=== PATIENT | male | born 1965 | race Caucasian/White ===

== ENCOUNTER 2018-11-18 09:27 | Inpatient (IN) ==
[2018-11-18 10:12] LABS: BASO# 0.02 X1000 (0.0-0.2); BASO% 0.3 % (0.0-0.8); EOS# 0.44 X1000 (0.0-0.7); EOS% 7.5 % (0.0-10.0); HEMATOCRIT 45.3 % (42.0-52.0); HEMOGLOBIN 15.6 g/dL (14.0-18.0); LYMPH# 1.75 X1000 (1.2-3.4); LYMPH% 29.8 % (20.5-51.1); MCH 29.9 PG (27-31); MCHC 34.4 g/dL (33-37); MCV 86.9 FL (81-99); MONO% 6.8 % (1.7-9.3); MPV 10.5 FL (7.4-10.4); NEUT# 3.27 X1000 (1.4-6.5); NEUT% 55.6 % (42.2-75.2); PLT 231 X1000 (130-400); RBC 5.21 XMIL (4.7-6.1); RDW 13.3 % (11.5-14.5); WBC 5.88 X1000 (4.8-10.8)
--- NOTE | 2018-11-18 10:14 | Diag Imaging Result Doc PS360 ---
CHEST-2 VIEWS - 11/18/2018 INDICATION: new atrial flutter COMPARISON: None FINDINGS: The lungs are normally expanded and clear. Heart size and mediastinal contours are normal. No pneumothorax or pleural effusion. IMPRESSION: Negative exam. Electronically signed by Cornell Butcher 11/18/2018 10:11 AM
[2018-11-18 11:10] LABS: ALB/GLOB RATIO 1.8; ALBUMIN 4.3 g/dL (3.5-5.0); CALCIUM 9.2 mg/dL (8.8-10.2); CREATININE 1.3 mg/dL (0.7-1.2); POTASSIUM 4.5 mmol/L (3.5-5.1); TOTAL BILIRUBIN 0.62 mg/dL (0.20-1.00); TOTAL PROTEIN 6.7 g/dL (6.3-8.3)
--- NOTE | 2018-11-18 12:12 | PROVIDER DOCUMENTATION ---
This chart was entered by Nuria Sanchez Scribe, acting as scribe for Nikita Norman DO. HPI-Cardiac General - General Chief Complaint: Palpitations Stated Complaint: CP-HX OF HEART PROB Time Seen by Provider: 11/18/18 09:49 Source: patient, family () - History of Present Illness-Cardiac Nature of Presenting Problem: 53 yowm presents to the ed with his woife. pt sts for 2 days he has had intermittent dizziness, fatigue and low stamina. pt is a fit man and denies chest pain. pt sts was on the treadmill this morning and became sob, dizziness and fatigue became worse and did not relieved as previous times. pt once in ed all sx did resolve and on exam pt is back to baseline Quality of Pain: reports: none Severity in ED: moderate Onset/Duration: 2 days ago (but worsened this am) Timing: gone now Context/Activities at Onset: reports: moderate activity Modifying Factors: improves with: rest. worse with: exercise Palpitation Quality: other (atrial flutter) Recent use of:: reports: no stimulants Nitro Today/Relief: reports: no nitro taken today Aspirin Treatment Today: reports: 81 mg x 1, provided at home Prior Chest Pain/Cardiac Workup: reports: echocardiography (2 years prior) Associated Symptoms: reports: dizziness, fatigue, shortness of breath. denies: abdominal pain, back pain, diaphoresis, fever/chills, headache, heartburn, nausea, syncope, vomiting Similar Symptoms Previously?: Yes Recently Seen Here or By Another Healthcare Provider: No Review of Systems - Adult - REVIEW OF SYSTEMS - ADULT Constitutional: reports: see HPI, fatique. denies: chills, fever Eyes: reports: no symptoms reported Ears, Nose, Mouth & Throat: reports: no symptoms reported Cardiovascular: reports: see HPI, palpitations. denies: chest pain, syncope Respiratory: reports: see HPI, shortness of breath. denies: cough, pleurisy, wheezing Gastrointestinal: denies: abdominal pain, diarrhea, nausea, vomiting Genitourinary: reports: no symptoms reported Musculoskeletal: denies: back pain, neck pain Integumentary: reports: no symptoms reported Neurological: reports: no symptoms reported Psychiatric: reports: no symptoms reported Endocrine: reports: no symptoms reported Hematologic/Lymphatic: reports: no symptoms reported Allergic/Immunologic: reports: no symptoms reported All Other Systems: Reviewed and Negative Past History - Adult - PAST MEDICAL HISTORY-ADULT Review of Records: reports: Nursing Assessment Review, Medications Reviewed Major Childhood Illnesses: reports: denies history Cardiovascular: reports: hyperlipidemia Respiratory: reports: denies history Gastrointestinal: reports: denies history Genitourinary: reports: denies history Musculoskeletal: reports: denies history Hand Dominance: Right Handed Neurological: reports: denies history Psychiatric: reports: denies history Endocrine/Immune: reports: thyroid disorder Other Conditions: reports: denies history - PRIOR SURGERIES/PROCEDURES Surgical/Procedure History: reports: reviewed, not pertinent - IMMUNIZATION STATUS Childhood Immunizations: See Nurse Assessment Flu Vaccine: See Nurse Assessment - FAMILY HISTORY Family History: HTN (father), other (father [place] at 39) - SOCIAL HISTORY Smoking: denies Substance Use: denies Living Situation: family Physical Exam-General - PHYSICAL EXAM-ADULT Initial Vital Signs Reviewed: Yes - CONSTITUTIONAL General Appearance: appears well, alert, no apparent distress (pt is back to baseline) - EYES Eyes: PERRL/EOMI, pink conjunctivae - HEAD, EARS, NOSE, MOUTH & THROAT HENMT: normocephalic/atraumatic, moist mucous membranes, normal ENT inspection - NECK Neck: non-tender, full range of motion, supple, normal inspection - RESPIRATORY Respiratory: chest non-tender, lungs clear, normal breath sounds - CARDIOVASCULAR Cardiovascular: normal peripheral pulses, regular rate, rhythm - GASTROINTESTINAL (ABDOMEN) Abdominal Exam: normal bowel sounds, non tender, soft, no organomegaly, no pulsatile mass - LYMPHATIC Lymphatic: no adenopathy - MUSCULOSKELETAL Back Exam: normal inspection, no CVA tenderness, no vertebral tenderness Extremity: normal range of motion, non-tender, normal gait, normal inspection, no pedal edema, no calf tenderness, normal capillary refill, pelvis stable - SKIN Integumentary: normal color, normal turgor, warm/dry - NEUROLOGIC Neurologic: grossly normal, no motor/sensory deficits - PSYCHIATRIC Psych/Mental Status: normal mood/affect, normal thought content, normal thought process, oriented x 3 - HEART Score HEART Score: History: Slightly Suspicious HEART Score: ECG: Normal HEART Score: Age: 45-65 Years HEART Score: Risk Factors for Atherosclerotic Disease: No Risk Factors Known HEART Score: Troponin: < or = Normal Limit Total HEART Score:: 1 Progress - PLAN OF CARE/RESULTS Progress/Plan/Lab Results: Vital Signs - 8 hr 11/18/18 09:30 11/18/18 09:44 11/18/18 09:50 Temperature 97.4 F L Pulse Rate 76 75 75 Respiratory Rate 16 9 L 13 Blood Pressure 189/103 O2 Sat by Pulse Oximetry 98 99 99 11/18/18 10:00 11/18/18 10:15 11/18/18 10:20 Temperature Pulse Rate 75 75 74 Respiratory Rate 9 L 15 20 Blood Pressure O2 Sat by Pulse Oximetry 96 98 97 11/18/18 10:30 11/18/18 10:40 11/18/18 10:51 Temperature Pulse Rate 76 84 94 H Respiratory Rate 22 17 13 Blood Pressure O2 Sat by Pulse Oximetry 100 97 93 L 11/18/18 10:52 11/18/18 11:00 11/18/18 11:02 Temperature Pulse Rate 78 87 91 H Respiratory Rate 13 18 12 Blood Pressure 142/95 124/86 O2 Sat by Pulse Oximetry 99 98 100 Laboratory Results - last 24 hr 11/18/18 11/18/18 11/18/18 09:45 09:45 09:45 WBC 5.88 RBC 5.21 Hgb 15.6 Hct 45.3 MCV 86.9 MCH 29.9 MCHC 34.4 RDW Std Deviation 13.3 Plt Count 231 MPV 10.5 H Immature Gran % (Auto) 0.0 Neut % (Auto) 55.6 Lymph % (Auto) 29.8 Ralls % (Auto) 6.8 Eos % (Auto) 7.5 Baso % (Auto) 0.3 Immature Gran # (Auto) 0.00 Neut # (Auto) 3.27 Lymph # (Auto) 1.75 Ralls # (Auto) 0.40 Eos # (Auto) 0.44 Baso # (Auto) 0.02 Sodium 143 Potassium 4.5 Chloride 106 Carbon Dioxide 28 Anion Gap 9 BUN 10 Creatinine 1.3 H Estimated GFR/1.73 m2 58 BUN/Creatinine Ratio 8 Glucose 99 Calculated Osmolality 284 Calcium 9.2 Total Bilirubin 0.62 AST 19 ALT 20 Alkaline Phosphatase 89 Creatine Kinase 123 Troponin T < 0.010 Total Protein 6.7 Albumin 4.3 Globulin 2.4 Albumin/Globulin Ratio 1.8 Orders Category Date Time Status CHEST-2 VIEWS [RAD] Stat Exams 11/18/18 09:59 Completed CBC WITH ELECTRONIC DIFF [HEME] Stat Lab 11/18/18 09:45 Completed CK PROFILE [SP CHEM] Stat Lab 11/18/18 09:45 Completed COMPREHENSIVE METABOLIC PANEL [CHEM] Stat Lab 11/18/18 09:45 Completed T4 Stat Lab 11/18/18 09:45 Received TROPONIN T Stat Lab 11/18/18 09:45 Completed Thyroid Stimulating Hormone [TSH] Stat Lab 11/18/18 09:45 Received EKG [EKG] Stat Ther 11/18/18 09:32 Ordered Result Diagrams: 11/18/18 09:45 11/18/18 09:45 - REASSESSMENT Reassessment #1 Time Reassessed: 10:28 Status: unchanged Reassessment #2 Time Reassessed: 12:07 Status: unchanged - EKG 1 Time of EKG reading by physician:: 09:34 EKG Read and Signed by:: Nikita Norman EKG Interpretation (*Must complete 3 of following elements*): Abnormal Rate: 75 Rhythm: atrial flutter with variable av block [place]: normal QRS: normal NV Interval: normal ST Wave: normal Prior EKG Comparison: no prior EKG - XRAY 1 XRAY: Bilateral XRAY Study: Chest Impression: See EMR Report (CHEST-2 VIEWS - 11/18/2018 INDICATION: new atrial flutter COMPARISON: None FINDINGS: The lungs are normally expanded and clear. Heart size and mediastinal contours are normal. No pneumothorax or pleural effusion. IMPRESSION: Negative exam. Electronically signed by Cornell Butcher 11/18/2018 10:11 AM 11/18/18 1011 Interpreting Physician: Cornell Butcher MD Dictated Date/Time: 11/18/18 1011 cc: Nikita Norman DO; None,PCP) - CONSULTS/PCP/HOSPITALIST Notification #1 *Consult/PCP/Hospitalist*: cardio dr horn Time Discussed: 12:01 Reason/Comments: will consult with hospitalist #2 Consult: hospitalist dr will will admit Time Discussed: 12:08 Reason/Comments: spoke with dr barker Consult Disposition: Admit Departure - Departure Date of Disposition Decision: 11/18/18 Time of Disposition Decision: 12:11 DIAGNOSIS: Atrial flutter, paroxysmal Disposition: ADMITTED INPATIENT 09 Certified Medical Emergency: Emergent Condition: Fair Referrals and Follow-Ups: None,PCP [Primary Care Provider] - - Critical Care Note This patient required my direct & personal management of CC.: No Attestation - Physician/ SLADE Attestation Patient care was provided by Advanced Practice Provider:: No The physician spent face to face time with patient:: Yes Advanced Practice Provider documentation review:: Supervising physician onsite and consulted in the evaluation and care of this patient. The physician did have a face to face encounter with the patient. This chart was documented by the indicated scribe, (Nuria Sanchez Scribe) and accurately reflects the services I performed and decisions made by me, Nikita Norman DO, as attested by the provider's signature.
[2018-11-18 12:28] LABS: T4 6.81 ug/dL (4.60-12.00)
[2018-11-18 12:29] LABS: TSH 5.76 uIUmL (0.27-4.20)
[2018-11-18] MEDS ORDERED: NS 1,000 ML IV ONE (12:34)
[2018-11-18] MEDS ORDERED: MULTAQ PO ONE (13:16)
[2018-11-18 13:17] LABS: URINE SOURCE CLEAN CATCH
[2018-11-18 13:25] LABS: BILIRUBIN URINE NEGATIVE (NEGATIVE); BLOOD URINE NEGATIVE (NEGATIVE); COLOR STRAW; GLUCOSE URINE NEGATIVE (NEGATIVE); KETONE URINE NEGATIVE (NEGATIVE); LEUKOCYTES URINE NEGATIVE (NEGATIVE); NITRITE URINE NEGATIVE (NEGATIVE); PH URINE 7.5; PROTEIN URINE NEGATIVE (NEGATIVE); TURBIDITY URINE CLEAR (CLEAR); UROBILINOGEN URINE NORMAL (NORMAL)
[2018-11-18 13:26] LABS: UR EPITHELIAL CELLS <10 /HPF (<10); URINE BACTERIA NEGATIVE /HPF; URINE RBC <10 /HPF (<10); URINE WBC <10 /HPF (<10)
[2018-11-18 13:31] LABS: HEMOGLOBIN A1C 5.4 % (4.8-6.0)
--- NOTE | 2018-11-18 13:44 | CARDIOLOGY CONSULTATION ---
DATE: 11/18/2018 CHIEF COMPLAINT: Shortness of breath. HISTORY OF PRESENT ILLNESS: Mr. Garcia is a 53-year-old male with a history of Hodgkin's lymphoma previously. He was in his usual state of health running on the treadmill this morning when he began feeling more fatigued, short of breath, lightheaded. He presented to the ER for further evaluation and was found to be in atrial flutter. He since has converted. He has a resting heart rate in the 40s to 50s that he says is chronic and stable for him. He has no complaints presently of shortness of breath or chest pain. PAST MEDICAL HISTORY: 1. Significant for a Hodgkin's lymphoma. 2. Hypothyroidism. SOCIAL HISTORY: Does not smoke. He is . Family is present in the room with him today. REVIEW OF SYSTEMS: A 10-system review of systems is negative except for those mentioned in history of present illness. PHYSICAL EXAMINATION: Vitals: Patient is afebrile. His heart rate currently is in the 40s. On presentation he was in the 70s to 80s. His blood pressure is 124/86. General: He is in no acute distress. HEENT: Oropharynx is moist. Normal dentition. Eye examination shows pink conjunctivae. White sclerae. Neck: Examination shows no obvious thyromegaly or thyroid tenderness. Cardiovascular: He sounds to be in a bradycardic rhythm that is regular. He has no murmurs. He has no S3. He has no lower extremity edema. Chest: Sounds clear bilaterally. He has no increased work of breathing. Abdomen: Soft, nontender, nondistended. He has no obvious organomegaly. Skin: Warm and dry throughout without any rashes. Neurological: He is moving all extremities well. He has no lateralizing deficits. PERTINENT DATA: His EKG shows atrial flutter with variable conduction at a rate of 75 beats per minute when he presented. His chest x-ray is negative for any acute abnormalities. His white count is 5.8, hematocrit 45, platelet count 231,000. Sodium 143, potassium 4.5, BUN 10, creatinine is 1.3. Cardiac enzymes are negative. TSH is slightly elevated at 5.76. His free T4 is normal at 6.81. ASSESSMENT: Mr. Garcia is a 53-year-old male with loan atrial flutter. PLAN: I will place him on Multaq 400 b.i.d. He can continue on his aspirin. I will have him arrange for an outpatient echo through our office and we will get him referred over to the EP service for consideration for atrial flutter ablation. From my standpoint, he can be discharged home. I will give him a prescription for Multaq at 400 b.i.d. with a now dose to be given and again, he can follow up with me in the office as an outpatient. cc: Justen Chow MD
--- NOTE | 2018-11-18 14:06 | HISTORY AND PHYSICAL ---
CHIEF COMPLAINT: Palpitations. HISTORY OF PRESENT ILLNESS: Mr. Garcia is a 53-year-old male with a history of non- Hodgkin's lymphoma and prostate cancer, status post prostatectomy, who presents with palpitations after running on his treadmill today. Mr. Garcia is a very healthy individual. He does extensive cardiovascular exercise 4 to 5 times a week. He was on his treadmill today when he started noticing palpitations, dizziness, diaphoresis, tunnel vision and anxiety. He slowed his speed on the treadmill which did not improve symptoms, so he stopped and spoke to his , and they decided to come to the ER for evaluation. In the ER, he had an EKG done which showed atrial flutter with a variable block; however, rate was fairly low in the 70s and 80s. He denies any overt chest pain today but does state that over the past few days, he has noticed some discomfort in his chest. He has not had any nausea or vomiting, no diaphoresis and no dyspnea. He denies any lower extremity edema or orthopnea. His chest x-ray is unremarkable, and his laboratory data does not show anything acute as well. He does have a creatinine of 1.3. PAST MEDICAL HISTORY: 1. Non-Hodgkin's lymphoma. 2. Hypothyroidism. 3. History of prostate cancer, status post prostatectomy. 4. Hyperlipidemia. PAST SURGICAL HISTORY: He has had a prostatectomy and a neck mass excision and tonsillectomy. SOCIAL HISTORY: He denies tobacco, alcohol or drug use. He works as a defense contractor. FAMILY HISTORY: His father has a significant medical history of coronary artery disease at a young age, first [place] at 39 years old and now secondary to congestive heart failure. No other significant family history that he knows of. REVIEW OF SYSTEMS: A 14-point review of systems was obtained and found to be negative with the exception of the HPI. ALLERGIES: Iodine and iodide containing products as well as penicillin. HOME MEDICATIONS: Synthroid 50 mcg daily, Lipitor 40 mg daily, aspirin 81 mg daily. PHYSICAL EXAMINATION: VITAL SIGNS: Blood pressure is 124/86, heart rate is 91, respiratory rate 12, O2 saturation is 100% on room air. Temperature is 97.4. GENERAL: This is a well-developed, well-nourished 53-year-old male lying in hospital bed in no acute distress. NEUROLOGICAL: Awake, alert and oriented. Follows commands. No focal deficits. HEENT: Head is atraumatic and normocephalic. His pupils are equal, round and reactive to light. Oral mucosa is moist. NECK: Trachea is midline. There is no JVD. CHEST: Clear to auscultation. CARDIOVASCULAR: Bradycardic but regular. S1 and S2 are noted. No appreciable murmurs. GASTROINTESTINAL: Soft, nondistended and nontender. Bowel sounds positive. EXTREMITIES: No edema. Pulses 2+ bilaterally. DIAGNOSTIC DATA: Chest x-ray is negative. EKG with atrial flutter, variable block. Laboratory data reviewed, and only abnormality is a creatinine of 1.3 and a TSH of 5.76. ASSESSMENT AND PLAN: 1. Palpitations with new onset atrial flutter. Currently in sinus bradycardia. Dr. Chow has seen the patient and recommended discharge home with multaq and full dose asa. He will follow up with Dr. Chow as OP and return to the ER or call 911 for worsening complaints or concerns. All questions answered. DC MEDS: 1. Multaq 400mg PO BID. 2. ASA 325mg PO BID 3. Synthroid 50mcg PO Daily 4. Lipitor 40mg PO Daily Dictated by JODY Whiteside for Stan Price MD cc: JODY Whiteside MD [facility]
[2018-11-18 14:31] VITALS: BP 142/87
--- NOTE | 2018-11-19 08:23 | EKG Report ---
Test Performed on : 11/18/2018 09:34:48 AM Test Reason : palpitations Blood Pressure : / mmHG Vent. Rate : 075 BPM Atrial Rate : 300 BPM P-R Int : 000 ms QRS Dur : 088 ms QT Int : 370 ms P-R-T Axes : 235 -32 012 degrees QTc Int : 413 ms Atrial flutter. with variable AV block. Left axis deviation Abnormal ECG No previous ECGs available Unconfirmed Result
[2018-11-19] MEDS ORDERED: ASPIRIN EC PO SCH (09:00)
[2018-11-19] MEDS ORDERED: SYNTHROID PO SCH (09:00)
[2018-11-19] MEDS ORDERED: LIPITOR PO SCH (09:00)
== END 2018-11-18 14:53 | disposition home or self-care (01) | DRG 310 ==
LOC: ED 09:27 → EDIPHOLD 13:07
PROVIDERS: ATTEND Internal Medicine
CPT/HCPCS: 71020; 71046; 80053; 81001; 82550; 83036; 84300; 84436; 84443; 84484; 85025; 93005; 93306; 99284; A9270; J7030